=== PATIENT | female | born 1960 | race Two or more races ===

== ENCOUNTER → 2019-10-28 | Outpatient (CLI) | payer OTHER ==
[~2019-10-28] VITALS: Ht 170.2 cm; Wt 106.6 kg
[~2019-10-28] MED LIST: DERMOTIC20 ML OTIC
== END | disposition home or self-care (01) ==
LOC: OFIC 805 10:42
DX: H90.3 Sensorineural hearing loss, bilateral (principal); L30.8 Other specified dermatitis

== ENCOUNTER 2020-01-07 12:22 | Emergency (ER) | payer OTHER ==
[~2020-01-07] VITALS: Ht 170.2 cm; Wt 107.0 kg
[2020-01-07] MEDS ORDERED: PLAVIX75 MG PO (12:38)
[2020-01-07] MEDS ORDERED: DILTIAZEM ER120 M2 PO (12:38)
[2020-01-07] MEDS ORDERED: ZETIA10 MG PO (12:39)
[2020-01-07] MEDS ORDERED: SYNJARDY 12.5-1 EACH PO (12:39)
[2020-01-07] MEDS ORDERED: COZAAR100 MG PO (12:39)
[2020-01-07] MEDS ORDERED: CYMBALTA30 MG PO (12:40)
[2020-01-07] MEDS ORDERED: LYRICA50 MG PO (12:40)
[2020-01-07] MEDS ORDERED: ATORVASTATIN CA40 MG PO (12:40)
[2020-01-07] MEDS ORDERED: HYDROXYCHLOROQ200 MG PO (12:41)
== END 2020-01-07 15:15 | disposition home or self-care (01) ==
LOC: ER 12:22
DX: S80.02XA Contusion of left knee, initial encounter (principal); M17.0 Bilateral primary osteoarthritis of knee; S80.01XA Contusion of right knee, initial encounter; W01.0XXA Fall on same level from slipping, tripping and stumbling without subsequent striking against object, initial encounter; Y93.89 Activity, other specified; Y92.238 Other place in hospital as the place of occurrence of the external cause; Y99.8 Other external cause status

== ENCOUNTER 2020-03-02 10:00 | Outpatient (CLI) | payer OTHER ==
[~2020-03-02 10:00] MED LIST changes: +ATORVASTATIN CA40 MG PO; +COZAAR100 MG PO; +CYMBALTA30 MG PO; +DILTIAZEM ER120 M2 PO; +HYDROXYCHLOROQ200 MG PO; +LYRICA50 MG PO; +PLAVIX75 MG PO; +SYNJARDY 12.5-1 EACH PO; +ZETIA10 MG PO
== END 2020-03-02 15:50 | disposition home or self-care (01) ==
LOC: PPH VACUNA 10:00
DX: Z23 Encounter for immunization (principal)
CPT/HCPCS: 90688; G0008

== ENCOUNTER → 2020-05-26 10:36 | Outpatient (CLI) | payer OTHER | END | disposition home or self-care (01) | LOC: PPH VACUNA 10:36 | PROVIDERS: ATTEND Emergency Medicine Pediatric Emergency Medicine | DX: Z23 Encounter for immunization (principal) ==

== ENCOUNTER → 2020-06-16 | Outpatient (CLI) | payer OTHER | END | disposition home or self-care (01) | LOC: PPH VACUNA 23:24 | PROVIDERS: ATTEND Emergency Medicine Pediatric Emergency Medicine | DX: Z23 Encounter for immunization (principal) ==

== ENCOUNTER 2021-02-09 08:00 | Outpatient (CLI) | payer OTHER | END 2021-02-09 08:30 | disposition home or self-care (01) | LOC: PPH VACUNA 08:00 | PROVIDERS: ATTEND Emergency Medicine Pediatric Emergency Medicine | DX: Z23 Encounter for immunization (principal) ==

== ENCOUNTER 2021-03-23 08:00 | Outpatient (CLI) | payer OTHER | END 2021-03-23 08:30 | disposition home or self-care (01) | LOC: PPH VACUNA 08:00 | PROVIDERS: ATTEND Emergency Medicine Pediatric Emergency Medicine | DX: Z23 Encounter for immunization (principal) ==